=== PATIENT | female | born 1980 | race Caucasian/White ===

== ENCOUNTER 2016-11-08 11:00 | Inpatient (IN) | payer OTHER ==
[~2016-11-08] VITALS: Ht 170.2 cm; Wt 108.9 kg
--- NOTE | ~2016-11-08 | PN ---
Unit #: [id number] #: [id number] Patient: ELIZABETH ARENAS [id number] [facility] [address] [place] [address] [id number] MR#: [id number] NAME: ELIZABETH ARENAS ROOM: [facility] Age: 36 Sex: F Admission Date: 11/08/2016 : 1980 Attending Physician: Rufino Joseph M.D. Admitting Physician: Rufino Joseph M.D. Primary Care Physician: Candelaria Palacio PROGRESS NOTES DATE 11/10/2016 DISCUSSION Elizabeth Arenas is a 36-year-old female. Patient interviewed. Chart reviewed. Obtained information from nursing staff. Patient was compliant, cooperative but still isolative, guarded, compliant with treatment. Currently on Celexa and detox protocol. Patient reports feeling better. Denied any suicidal or homicidal ideation. Complete review of system unremarkable. MENTAL STATUS EXAMINATION General appearance, patient dressed casually. Attention span, concentration fair. Oriented in place and person. Mood and affect labile. Speech monotone. Thought process concrete. Patient denied any thoughts of harming self or others. Recent and remote memory poor. Insight and judgement poor. DIAGNOSIS 1. Mood disorder NOS. 2. Opiate use disorder, severe. ASSESSMENT/PLAN Advised to continue with current medication and therapeutic protocol. If needed, consider further adjustment of medication. Dictated by... Brenda Florez/kimberlee TD: 11/11/2016 22:52 JOB #: [id number] Unit #: [id number] #: [id number] Patient: ELIZABETH ARENAS PROGRESS NOTES Page 1 of 1 X Rufino Joseph MD PROGRESS NOTE
--- NOTE | ~2016-11-08 | PN ---
Unit #: [id number] #: [id number] Patient: ELIZABETH ARENAS [id number] [facility] [address] [place] [address] [id number] I MR#: [id number] NAME: ELIZABETH ARENAS ROOM: [facility] Age: 36 Sex: F Admission Date: 11/08/2016 : 1980 Attending Physician: Rufino Joseph M.D. Admitting Physician: Rufino Joseph M.D. Primary Care Physician: Candelaria Palacio PROGRESS NOTES DATE 11/09/2016 DISCUSSION Ms. Elizabeth Arenas is a 36-year-old female, seen on 11/09/2016. The patient interviewed, chart reviewed, and obtained information from the nursing staff. The patient was withdrawn, isolative, flat affect, sad and dysphoric. The patient still sad, depressed, anxious, withdrawn, flat affect, passive SI. REVIEW OF SYSTEMS Complete review of systems unremarkable. MENTAL STATUS EXAMINATION General appearance: Patient dressed casually. Attention span and concentration, poor. Oriented in place and person. Mood and affect, sad, depressed, withdrawn. Speech, monotone. Thought process, concrete. The patient reported having passive SI, guarded, withdrawn, anxious. Recent and remote memory, poor. Insight and judgment, poor. DIAGNOSES 1. Major depressive disorder, recurrent, severe, F33.2. 2. Opiate use disorder, severe, F11.20. ASSESSMENT/PLAN Continue with the current treatment and behavior modification program on the inpatient unit, if needed consider further adjustment of medication. The patient's labs pending. Dictated by... Brenda Florez/javi TD: 11/10/2016 12:10 JOB #: [id number] Unit #: [id number] #: [id number] Patient: ELIZABETH ARENAS PROGRESS NOTES Page 1 of 1 X Rufino Joseph MD PROGRESS NOTE
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
--- NOTE | ~2016-11-08 | DS ---
Unit #: [id number] #: [id number] Patient: ELIZABETH GOMEZ [id number] [facility] [address] [place] [address] [id number] I MR#: [id number] NAME: ELIZABETH GOMEZ ROOM: [facility] Age: 36 Sex: F Admission Date: 11/08/2016 : 1980 Discharge Date: 11/11/2016 Attending Physician: Rufino Joseph M.D. Primary Care Physician: Gladys Murphy A.P.R.N. DISCHARGE SUMMARY REASON FOR ADMISSION Detox. DIAGNOSTIC STUDIES LABORATORY RESULTS: Unremarkable except BUN 8. HOSPITAL COURSE The patient was admitted to inpatient unit on 11/08/2016 and discharged on 11/11/2016. The patient was treated on the inpatient unit with chemical dependency group, psychoeducation, psychotherapy, and structured milieu. The patient was compliant with programming and med management. Subsequently, the patient was discharged with a plan to follow up in outpatient program. DISCHARGE MEDICATIONS None. DISCHARGE DIAGNOSES Psychiatric: Mood disorder, not otherwise specified, F32.9; opioid use disorder, severe, F11.20. Secondary diagnosis: Deferred. Medical diagnoses: Chronic pain, bulging disk, fibromyalgia. Stressors: Psychosocial stressor, legal problem. DISCHARGE INSTRUCTIONS The patient to follow up in outpatient clinic as per secondary social studies teacher. CONDITION ON DISCHARGE The patient was pleasant and cooperative. Denied any psychotic symptom or any suicidal ideation. PROGNOSIS Guarded. DIET AND ACTIVITY As tolerated. Dictated by... Rufino Joseph M.D. Unit #: [id number] #: [id number] Patient: ELIZABETH GOMEZ SZC/modl TD: 11/12/2016 01:59 JOB #: [id number] DISCHARGE SUMMARY Page 1 of 1 X Rufino Joseph MD X DISCHARGE SUMMARY
--- NOTE | ~2016-11-08 | HP ---
Unit #: [id number] #: [id number] Patient: ELIZABETH GOMEZ [id number] [place] [address] [id number] MR#: [id number] NAME: ELIZABETH GOMEZ ROOM: [facility] Age: 36 Sex: F Admission Date: 11/08/2016 : 1980 Attending Physician: Rufino Joseph M.D. Admitting Physician: Rufino Joseph M.D. Primary Care Physician: Gladys Murphy A.P.R.N. HISTORY AND PHYSICAL HISTORY OF PRESENT ILLNESS The patient is a 36-year-old female admitted to [facility] on 11/08/2016 to withdrawal from heroin. PAST MEDICAL HISTORY 1. Obesity 2. Fibromyalgia 3. Bulging disc. PAST SURGICAL HISTORY Cholecystectomy. SOCIAL HISTORY She is unemployed and homeless. She drinks socially, uses heroin on a daily basis. FAMILY MEDICAL HISTORY Noncontributory. ALLERGIES No known drug allergies. CURRENT MEDICATIONS The patient is not on any home medications. REVIEW OF SYSTEMS CONSTITUTIONAL: No fever or chills. HEENT: Denies any sore throat, ear pain or runny nose. CARDIOVASCULAR: Denies chest pain, irregular heart rhythm or palpitations. CHEST: Denies shortness of breath or cough. No hemoptysis. GASTROINTESTINAL: Denies nausea, vomiting, diarrhea or chronic constipation. ENDOCRINE: Denies history of increased thirst or urination. No recent significant weight loss or gain. GENITOURINARY: Denies dysuria, frequency, or hematuria. SKIN: Denies any rashes. HEMATOLOGIC: Denies history of increased bleeding or bruising. MUSCULOSKELETAL: Denies any hot, swollen joints. No generalized muscle pain. NEUROLOGIC: Denies problems with vision or speech. No frequent, severe headaches. No numbness, tingling or weakness in any extremities. Denies loss of bladder or bowel control. Unit #: [id number] #: [id number] Patient: ELIZABETH GOMEZ PHYSICAL EXAM GENERAL: She is awake, alert and oriented in no acute distress. VITAL SIGNS: Temperature 98.6, heart rate 70, respiration 17, blood pressure 122/82. HEIGHT: 5'7". WEIGHT: 240 pounds. SKIN: Warm and dry without rash or lesion. HEENT: Normocephalic. TMs not viewed. Oral and nasal passages clear. Conjunctivae clear. PERRLA. EOMs intact. NECK: Supple without lymphadenopathy or thyromegaly. HEART: Regular rate and rhythm without murmur. LUNGS: Clear. ABDOMEN: Soft, nontender. : Not done. EXTREMITIES: No evidence of cyanosis, clubbing or edema. Moves all without focal deficit. NEUROLOGICAL: Grossly within normal limits. Cranial Nerves: II: Visual patel are intact. III, IV AND : Extraocular movements are intact. Pupils are equal, round and reactive to light. V: Facial sensation is grossly normal. VII: Facial movements and expression are normal. VIII: Auditory acuity grossly intact. IX, X: Uvula is midline. Phonation is normal. XI: Patient shrugs shoulders and turns head normally. XII: Tongue protrudes in the midline. Sensory and Motor Function: Sensory and motor sensation is grossly normal. Motor: moves all extremities well. IMPRESSION 1. Psychiatric admission. 2. Obesity. 3. Fibromyalgia. 4. Bulging disc. RECOMMENDATIONS Psychiatric per psychiatrist. MEDICAL: No contraindication to participate in facility activities. MEDICAL PROGNOSIS Good. MEDICAL CONDITION Stable. Dictated by... Candelaria May/jose TD: 11/10/2016 01:52 JOB #: [id number] Unit #: [id number] #: [id number] Patient: ELIZABETH GOMEZ HISTORY AND PHYSICAL Page 1 of 1 X ZEE STANFORD APRN HISTORY AND PHYSICAL
[~2016-11-08 11:00] MED LIST: ALPRAZOLAM PO; BUSPAR5 M1; CYMBALTA PO; FLEXERIL PO; IMODIUM2 MG PO; LITHIUM PO; MEDROL PO; NABUMETONE PO; NEURONTIN100 MG; PRENATAL1 TA1 PO; PRILOSEC PO; TOPAMAX PO; ULTRAM PO
[2016-11-09 13:59] LABS: BASOPHIL% 0.3 % (0-2.5); EOSINOPHIL# 0.1 X10e3 (0-0.7); HEMATOCRIT 37.1 % (35.0-45.0); HEMOGLOBIN 12.1 gm/dL (12.0-16.0); LYMPHOCYTE# 1.5 X10e3 (1.0-3.5); LYMPHOCYTE% 26.9 % (17.0-45.0); MEAN CELL VOLUME 84.9 FL (83-96); MEAN CORPUSCULAR HEMOGLOBIN 27.7 PG (28-34); MEAN CORPUSCULAR HGB CONC 32.6 g/dL (30-36); MEAN PLATELET VOLUME 9.3 FL (6.5-11.5); MONOCYTE# 0.3 X10e3 (0-1.0); MONOCYTE% 6.1 % (3.0-12.0); NEUTROPHIL# 3.7 X10e3 (1.5-7.1); NEUTROPHIL% 64.7 % (40-75); PLATELET COUNT 177 X10e3 (140-420); RED BLOOD COUNT 4.37 X10e (3.90-5.30); WHITE BLOOD COUNT 5.7 X10e3 (4.0-10.5)
[2016-11-09 14:10] LABS: ALBUMIN SERUM 3.2 g/dL (3.5-5.0); BILIRUBIN,TOTAL 1.3 mg/dL (0.2-2.0); CALCIUM SERUM 8.5 mg/dL (8.4-10.2); CREATININE SERUM 0.4 mg/dL (0.6-1.4); POTASSIUM 3.8 mmol/L (3.5-5.1); PROTEIN TOTAL SERUM 6.3 g/dL (6.0-8.3)
[2016-11-09 14:14] LABS: DIFF IND NO
== END 2016-11-11 10:10 | DRG 885 ==
LOC: P1E 13:10 → POF 20:28 → P1E 20:29
PROVIDERS: Psychiatry & Neurology Psychiatry
DX: F33.2 Major depressive disorder, recurrent severe without psychotic features (principal); F11.20 Opioid dependence, uncomplicated; E66.9 Obesity, unspecified; M79.7 Fibromyalgia; F39 Unspecified mood [affective] disorder; Z90.49 Acquired absence of other specified parts of digestive tract
CPT/HCPCS: 80053; 85025; 86592